=== PATIENT | female | born 2000 | race Hispanic/Latino ===

== ENCOUNTER 2020-10-07 21:07 | Emergency (ER) | payer SELFPAY ==
[~2020-10-07] VITALS: Ht 160 cm; Wt 68.0 kg
[2020-10-07] MEDS ORDERED: CEPHALEXIN500 MG PO (22:15)
[2020-10-07 22:27] VITALS: BP 123/75
== END 2020-10-07 22:27 | disposition home or self-care (01) ==
LOC: FSED 21:25
DX: L03.311 Cellulitis of abdominal wall (principal); L73.9 Follicular disorder, unspecified
CPT/HCPCS: 99282